=== PATIENT | female | born 1980 | race Caucasian/White ===

== ENCOUNTER 2025-06-18 10:32 | Outpatient (CLI) | payer OTHER, SELFPAY | END 2025-06-18 10:33 | disposition home or self-care (01) | LOC: AMB 06-22 05:32 | PROVIDERS: Visit Provider Emergency Medicine Emergency Medical Services | DX: S99.912A Unspecified injury of left ankle, initial encounter (principal); W00.0XXA Fall on same level due to ice and snow, initial encounter; Y93.29 Activity, other involving ice and snow; Y92.038 Other place in apartment as the place of occurrence of the external cause | CPT/HCPCS: A0425; A0433 ==

== ENCOUNTER 2025-06-18 11:01 | Day surgery (SDC) | payer OTHER, SELFPAY ==
[2025-06-18] VITALS (62 sets, daily range): BP systolic 133–191; BP diastolic 78–112; PULSE 83–120; RESP 8–38; TEMP 36.2–37.2; O2SAT 92–100
--- NOTE | 2025-06-18 11:06 | CRLHL7_ITS ---
For Patients: As a result of the Century Cures Act, medical imaging exams and procedure reports are released immediately into your electronic medical record. You may view this report before your referring provider. If you have questions, please contact your health care provider. Indication: Fall Technique: Two views of the left ankle Comparison: None Findings/Impression: Obliquely oriented fracture of the distal left fibula with lateral displacement of the distal fracture segment by approximately 1 bone width and posterior displacement by approximately 2 bone widths. Medial malleolar fracture which is displaced laterally relative to the tibia by greater than 2 bone widths. Questionable slight impaction type fracture of the tibial plafond as seen on lateral view. Tibiotalar ankle dislocation with the talus dislocated laterally by 1 bone width. No suspicious osseous lesions. Mild soft tissue edema about the ankle. Impression: Left ankle fracture dislocation as detailed above. Dictated by James Castro MD @ 06/18/2025 11:30:12 AM (Electronically Signed)
[2025-06-18] MEDS: ONDANSETRON 2 MG/ML inj 4 MG IVP (11:10)
--- NOTE | 2025-06-18 11:20 | CRLHL7_ITS ---
For Patients: As a result of the Century Cures Act, medical imaging exams and procedure reports are released immediately into your electronic medical record. You may view this report before your referring provider. If you have questions, please contact your health care provider. Indication: Postreduction Technique: Left ankle, 3 views. Comparison: Same day prior left ankle radiographs. Findings/Impression: Interval splint placement, which partially obscures fine osseous and soft tissue detail. Interval reduction of previously seen complex ankle fracture dislocation with persistent mild lateral shift of the talar dome relative to the tibial plafond and widening of the medial clear space. Decreased displacement of acute medial malleolar fracture. Significantly improved alignment of acute, obliquely oriented distal fibular fracture, now mildly posteriorly displaced. Cortical irregularity of the lateral tibial plafond suspicious for additional acute fracture. Surrounding soft tissue swelling. Dictated by Vianca Valdez MD @ 06/18/2025 11:43:27 AM (Electronically Signed)
--- OUTSIDE RECORDS SUMMARY | 2025-06-18 11:20 | XMS_ITS | Clinical Summary ---
Author Organization [employer] [facility] Address [address] [place] [id number] Care Team Providers Care Tape Calender Name Role Phone Abdi Reina MD Unavailable [phone] Rosio Urias MD Primary Care Prov ider Allergies Active Allergy Reactions Criticality Noted Date Comments Blood-Group Specific Substance Other - Describe In Comment Field 10/30/2015 Patient has a nonspecific antibody. Blood product orders may be delayed. Draw one red top and 2 purple top tubes for all Type and Screen/Red Blood Cell product orders. Medications nicotine 21 mg/24 hr (NICODERM; HABITROL) 21 mg/24 hr patchIndications: Tobacco use,Nicotine use disorder Apply 1 Patch on dry, clean, hairless skin once daily. 14 Patch 3 4 Active nicotine 14 mg/24 hr (NICODERM; HABITROL) 14 mg/24 hr patchIndications: Tobacco use,Nicotine use disorder Apply 1 Patch on dry, clean, hairless skin once daily. 14 Patch 3 4 Active nicotine 7 mg/24 hr (NICODERM; HABITROL) 7 mg/24 hr patchIndications: Tobacco use,Nicotine use disorder Apply 1 Patch on dry, clean, hairless skin once daily. 14 Patch 3 4 Active nicotine 4 mg lozengeIndication s:Tobacco use,Nicotine use disorder Place 1 Lozenge (4 mg) in mouth, between cheek & gum every hour while awake as needed for Nicotine Craving. Max 20 lozenges per day 576 Each 5 4 Active amLODIPine 5 mg tabletIndications :Primary hypertension Take 1 Tablet (5 mg) by mouth once daily. 90 Tablet 3 5 Active buPROPion 150 mg Extended-Release tabletIndications :Tobacco use,Recurrent major depressive disorder, in full remission,General ized anxiety disorder Take 1 Tablet (150 mg) by mouth once daily in the morning. 90 Tablet 3 5 Active sertraline 100 mg tabletIndications :Recurrent major depressive disorder, in full remission,General ized anxiety disorder Take 1 Tablet (100 mg) by mouth once daily. 90 Tablet 3 5 Active Hospital, Clinic, or Other Facility Administered Medication Ordered Dose Route Frequency Start Date End Date Status levonorgestrel intrauterine device 1 Device (MIRENA)Indications:Encounter for IUD insertion 1 Device IU Q 5 YEARS 09/28/2017 Active Active Problems Problem Noted Date Diagnosed Date Primary hypertension 09/28/2024 Hyperglycemia 04/09/2020 Palpitations 01/29/2020 Overview (09/28/2024): 24 Holter in 2019 which was overall normal Tobacco use 05/24/2016 Overview (01/17/2017): No desire to quit this . 01/17/2017 Recurrent major depressive disorder 12/31/2010 Generalized anxiety disorder 12/31/2010 Resolved Problems Problem Noted Date Diagnosed Date Resolved Date Alcohol dependence 09/24/2018 5 Irregularly irregular heart rhythm 09/24/2018 09/28/2024 Elevated blood-pressure read ing without diagnosis of hypertension 09/24/2018 09/28/2024 Normal labor 07/22/2017 06/15/2024 Elderly multigravida, curren tly in first trimester 01/17/2017 06/15/2024 Incisional infection 11/07/2015 016 Yeast dermatitis 11/07/2015 09/28/2024 Status post repeat low trans verse section 10/24/2015 06/15/2024 Intrauterine 10/24/201501/17 Pap smear for cervical cancer screening 05/16/2015 01/17/2017 Overview (05/16/2015): Normal pap 10/24/12 Previous section 04/18/2015 Cervical cancer screening 08/29/2014 Overview (06/15/2024): 2012 nilm Plan: pap every 3 years Epic Encounters Date Type Department Care Team Description 03/29/2025 11:00 AM CDT Ancillary Procedure [facility] [address] [place] [address] 03/29/2025 Travel from Last 3 Months Immunizations Immunization Administration Dates Next Due Hepatitis B (Adult) 05/24/2013,02/22/2013,2012 Influenza, IIV4 04/24/2018,04/18/2017 TD, UNSPECIFIED 07/18/2001 Td (Age >=7 Years) 07/18/2001 Td, Preservative Free (age > = 7 Years) 07/01/2011 Tdap 05/16/2017, 6,07/04/2014,2012 Family History Medical History Relation Name Comments Good Health Father Psychiatric illness Mother Depressi on Suicide Attempts Mother Diabetes Neg. 1 Hypertension Neg. 2 Cancer-colon Neg. 3 Heart Disease Neg. 5 Cancer-breast Paternal Aunt Depression Sister 2 Shilpa Relation Name Status Comments Brother ann-marie Alive Father Alive Maternal Grandfather Maternal Grandmother Mother suicide Neg. 1 Neg. 2 Neg. 3 Neg. 4 Neg. 5 Paternal Aunt Paternal Grandfather Paternal Grandmother Sister 1 Mellissa Alive Sister 2 Shilpa Alive Social History Tobacco Use Types Packs/Day Years Used Date Smoking Tobacco: Every Day Cigarettes Smokeless Tobacco: Never Tobacco Cessation:Ready to Q uit: Yes; Counseling Given: Yes Comments:half pack/day Alcohol Use Standard Drinks/Week Comments Not Currently 6 (1 standard drink = 0.6 oz pur e alcohol) 6 can of beer a week PHQ-2 Answer Date Recorded PHQ-2 TOTAL SCORE 2 12/14/2024 Social Connections Answer Date Recorded Do you often feel lonely or isolated from those around you? 0 06/15/2024 Financial Resource Strain Answer Date R ecorded Difficulty of Paying Living Expenses 3 06/15/2024 Difficulty of Paying Living Expenses Not on file 06/15/2024 Food Insecurity Answer Date Recorded Do you worry your food will run out before you are able to buy more? 1 06/15/2024 Transportation Needs Answer Date Record ed Does lack of transportation keep you from medica l appointments? 1 06/15/2024 Does lack of transportation keep you from work, meetings or getting things that you need? 1 06/15/2024 Housing Stability Answer Date Recorded What is your housing situation today? 1 06/15/2024 Utilities Answer Date Recorded Do you have trouble paying f or utilities (for example, heat, electricity, water, phone)? 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 Rosa yu , Dr. Collins ad Delivery Location:[facility] 2017 Term 39w 0d 2.83 kg (6 lb 3.9 oz) F C-Sec tion Spinal N Livin g 9 9 Kait Brumfield MD Complications:None Delivery Location:[facility] Last Filed Vital Signs Vital Sign Reading Time Taken Comments Blood Pressure 132/78 12/14/2024 9:11 AM CDT Pulse 84 12/14/2024 8:44 AM CDT Temperature 36.6 C (97.8 F) 09/24/2018 1:30 PM CDT Respiratory Rate 18 09/28/2018 7:25 AM CDT Oxygen Saturation 98% 12/14/2024 8:44 AM CDT Inhaled Oxygen Concentration - - Weight 85.9 kg (189 lb 6.4 oz) 09/28/2024 8:25 A M CDT Height 165.5 cm (5' 5.16) 06/15/2024 9:58 AM CS T Body Mass Index 31.37 06/15/2024 9:58 AM ONSITE CASE MANAGER Plan of Treatment Health Maintenance Due Date Last Done Comments Hepatitis C screening for ag e 18-79 1998 Pneumococcal series for age 6-49 (1 of 2 - PCV) 09/17/1999 HPV series for age 9-45 (1 - 3-dose SCDM series) 09/17/2007 COVID-19 vaccine series (2 - season) 2025 12/02/2020 Influenza Vaccine (#1) 2025 04/24/2018, 2016 Pap test for age 21-65 04/09/2025 (Verified in Care Everywhere or Patient Record), 01/17/2017, 07/01/2010 [facility] BMI (ht and wt on same day) for age 18+ 06/15/2025 06/15/2024, 09/28/2018, 07/03/2018, Additional history exists Depression screening for age 12+ 12/14/2025 12/14/2024, 08/30/2024, 06/15/2024, Additional history exists Tetanus booster 05/16/2027 05/16/2017, 11/2015, 07/04/2014, Additional history exists RSV vaccine for adults or (1 - 1-dose 75+ series) 09/17/2055 Hepatitis B series for 19+ Completed 05/24, 02/22/2013, 12/05/2012 HIV for age 15-65 Completed 01/17/2017, 05/16/2015 Procedures Procedure Name Priority Date/Time Associated Diagnosis Comments XR MAMMO KRYSTYNA BILAT SCREEN Routine 03/29/2025 11:11 AM CDT Visit for screening mammogram C ENGINEER THIN PREP PAP SCREEN IMAGED Routine 01/17/2017 7:38 PM CDT Elderly multigravida, currently in first trimester (HC) ANTI HIV 1/2 Routine 01/17/2017 7:36 PM CDT Elderly multigravida, currently in first trimester (HC) from Last 3 Months or Most Recently Relevant to Health Maintenance Results * XR MAMMO KRYSTYNA BILAT SCREEN (03/29/2025 11:11 AM CDT) Anatomical Region Laterality Modality BREASTS, Breast Left, Breast Right Bilateral Mammography Impressions 04/01/2025 2:06 PM CDT There is no radiographic evidence for malignancy. Recommend annual mammograms. MAMMOGRAM ASSESSMENT: ACR 1 Negative PATIENTS: You will also receive a letter with your examination results in an easy to read format. If you have questions about your results, please contact your referring provider. Narrative 04/01/2025 2:06 PM CDT For Patients: As a result of the Century Cures Act, medical imaging exams and procedure reports are released immediately into your electronic medical record. You may view this report before your referring provider. If you have questions, please contact your health care provider. XR MAMMO KRYSTYNA BILAT SCREEN [[id number]] CLINICAL HISTORY: This is an asymptomatic 44 y.o. patient. INDICATION FOR EXAM: Mammogram Screening. TECHNIQUE: CC and MLO views were obtained. This study was evaluated with the assistance of Computer-Aided Detection. Breast Tomosynthesis was used in interpretation. COMPARISON FILM: Yes 09/03/22 [facility] 06/15/21 [facility] FINDINGS: There are scattered areas of fibroglandular density. There are no dominant masses, suspicious micro calcifications or areas of architectural distortion. Rosio Urias MD MAMMO Fi nal Result * C ENGINEER THIN PREP PAP SCREEN IMAGED (01/17/2017 7:38 PM CDT) Case Report Gynecologic Cytology Report Case: [id number] Authorizing Provider: Leah Cintron Collected: 01/17/20171937 MD Mireille Ordering Location: [facility] Received: 01/17/20171937 [facility] First Screen: Soheila Cordova Specimen: C ENGINEER ThinPrep Vial Screening, Cervical 01/27/2017 7:55 AM CDT [facility] INTERPRETATION/ RESULT NEGATIVE FOR INTRAEPITHELIAL LESION OR MALIGNANCY (NIL) (none) 01/27/2017 7:55 AM CDT [facility] at 0755 CDT ORGANISM(S) Shift in delia suggestive of bacterial vaginosis 01/27/2017 7:55 AM CDT [facility] SPECIMEN ADEQUACY Satisfactory for evaluation Endocervical component present 01/27/2017 7:55 AM CDT [facility] HPV REQUEST HPV if ASCUS 01/27/2017 7:55 AM CDT [facility] Date of LMP 10/22/2016 01/27/2017 7:55 AM CDT [facility] Last Pap Date 200901/27/2017 7:55 AM CDT [facility] Last Pap Result NIL 7 7:55 AM CDT [facility] Abnormal Pap or [place] Bx in last 5 years No 01/27/2017 7:55 AM CDT [facility] Menstrual Status Regular Periods 01/27/2017 7:55 AM CDT [facility] [place] Bx Done Today No 01/27/2017 7:55 AM CDT [facility] Additional Information None given 01/27/2017 7:55 AM CDT [facility] Automated Review Successful 01/27/2017 7:55 AM CDT [facility] Comment:Specimen processed s uccessfully by automated burial vault deliverer and installer device, ThinPrep Imaging System, [employer] Note The pap test is a screening technique, not a diagnostic procedure. It is used primarily to screen for squamous cancers and precursor lesions. Published studies have shown that it is subject to both false negative and false positive results. The pap test should not be used as the sole means to diagnose or exclude pre-malignant and malignant lesions. Interpreted at [facility] (Central Lab, [facility], [facility], [facility], [facility], [facility], [facility]) 01/27/2017 7:55 AM CDT [facility] Other (Cervical) 01/17/2017 7:38 PM CDT 01/17/2017 7:38 PM CDT us Leah Cintron MD PATHOLOGY/CYTOLOGY Final Result [facility] [address] [place] [address], [place] * ANTI HIV 1/2 (01/17/2017 7:36 PM CDT) HIV-1/HIV-2 ANTIBODY Non-Reacti ve Non-Reacti ve 01/19/2017 3:36 PM CDT [facility] Blood BLOOD SPECIMEN / Unknown Venipuncture / Unknown 01/17/2017 7:36 PM CDT 01/17/2017 7:36 PM CDT Narrative [facility] - 01/19/2017 3:36 PM CDT HIV-1 p24 and HIV-1/HIV-2 Ab not detected us Leah Cintron MD SEND OUTS Fi nal Result Performing Organization Address City/[facility]/ZIP Co de Phone Number [facility] [address] [place] [address], from Last 3 Months or Most Recently Relevant to Health Maintenance Insurance [facility] [employer] [employer] Advance Directives * Full Code (Latest Code Status on File) Date Activated Date Inactivated Comments 07/22/2017 3:33 AM 07/24/2017 10:02 PM Question Answer Comments Code Status Discussion: Not Discussed * Full Code Date Activated Date Inactivated Comments 07/21/2017 9:11 PM 07/22/2017 2:49 AM * Full Code Date Activated Date Inactivated Comments 10/24/2015 12:19 PM 10/27/2015 3:29 PM * Full Code Date Activated Date Inactivated Comments 10/24/2015 5:35 AM 10/24/2015 12:19 PM * Full Code Date Activated Date Inactivated Comments 10/21/2015 10:39 AM 10/21/2015 10:47 AM Care Teams Tape Calender Relationship Specialty Start Date End Date Rosio Urias MD [address] [place] [address] PCP - General Family Practice 03/29/25 Abdi Reina MD Family Practice 04/16/15
--- NOTE | 2025-06-18 11:38 | ED.LOWEXIN ---
HPI - Extremity Injury (Lower) General Time Seen by Provider: 11:10 Date Seen: 06/18/25 Chief Complaint: Extremity Pain/Injury, Lower Stated Complaint: Fall Time Seen by Provider: 06/18/25 11:35 Source: patient, EMS and RN notes reviewed Mode of arrival: EMS Limitations: no limitations History of Present Illness HPI Narrative: This 44-year-old female was brought in by EMS for obvious open ankle dislocation. Nursing staff asked me to assist immediately. She had received 100 mcg of fentanyl and 25 mg of IV ketamine without relief. She slipped and fell in the parking lot this morning. She did not hit her head, no loss of consciousness. Nothing else is injured. She had a black coffee this morning but otherwise has not eaten since last night. She denies any allergies, has not had any complications to anesthesia. No chronic medical issues. She has had a before. Dr. George is here to assist me with anesthesia. Related Data Home Medications ?Medication ?Instructions ?Recorded ?Confirmed amlodipine 5 mg tablet 5 mg PO DAILY 06/18/25 06/18/25 bupropion HCl 150 mg 24 hr tablet, 150 mg PO DAILY 06/18/25 06/18/25 extended release sertraline 100 mg tablet 100 mg PO DAILY 06/18/25 06/18/25 Allergies Allergy/AdvReac Type Severity Reaction Status Date / Time No Known Drug Allergies Allergy Verified 06/18/25 11:38 Review of Systems Status of ROS: Reports: 6 or more systems reviewed and unremarkable except as noted in History and below Exam Const: Vital Signs, click to edit/add: Vital Signs - 24 hr 06/18/25 11:10 06/18/25 11:11 06/18/25 11:12 Temperature 98.1 F Pulse Rate 108 H 108 H Pulse Rate [Pulse Oximeter] 97 Respiratory Rate 24 17 19 Blood Pressure 182/111 H Blood Pressure [Le ft Upper Arm] 171/97 H Pulse Oximetry 97 100 99 Oxygen Delivery Me thod Room Air Nasal Cannula Nasal Cannula Oxygen Flow Rate 4 4 06/18/25 11:14 06/18/25 11:15 06/18/25 11:15 Temperature Pulse Rate 112 H Pulse Rate [Pulse Oximeter] Respiratory Rate 23 Blood Pressure 171/97 H Blood Pressure [Le ft Upper Arm] Pulse Oximetry 100 100 Oxygen Delivery Me thod Nasal Cannula Nasal Cannula Nasal Cannula Oxygen Flow Rate 4 4 4 06/18/25 11:16 06/18/25 11:22 06/18/25 11:25 Temperature Pulse Rate 107 H 99 103 H Pulse Rate [Pulse Oximeter] Respiratory Rate 21 11 L 9 L Blood Pressure 185/103 H 191/112 H 181/110 H Blood Pressure [Le ft Upper Arm] Pulse Oximetry 100 99 100 Oxygen Delivery Me thod Nasal Cannula Nasal Cannula Nasal Cannula Oxygen Flow Rate 4 4 4 06/18/25 11:30 06/18/25 11:31 06/18/25 11:36 Temperature Pulse Rate 93 89 99 Pulse Rate [Pulse Oximeter] Respiratory Rate 10 L Blood Pressure 163/105 H 158/111 H Blood Pressure [Le ft Upper Arm] Pulse Oximetry 100 99 100 Oxygen Delivery Me thod Nasal Cannula Nasal Cannula Nasal Cannula Oxygen Flow Rate 4 2 2 06/18/25 11:45 06/18/25 12:00 06/18/25 12:01 Temperature Pulse Rate 90 83 83 Pulse Rate [Pulse Oximeter] Respiratory Rate 24 24 14 Blood Pressure 155/96 H Blood Pressure [Le ft Upper Arm] Pulse Oximetry 99 99 97 Oxygen Delivery Me thod Nasal Cannula Nasal Cannula Room Air Oxygen Flow Rate 2 2 06/18/25 12:02 06/18/25 12:15 06/18/25 12:30 Temperature Pulse Rate 87 84 86 Pulse Rate [Pulse Oximeter] Respiratory Rate 38 H 17 Blood Pressure Blood Pressure [Le ft Upper Arm] Pulse Oximetry 97 98 98 Oxygen Delivery Me thod Oxygen Flow Rate 06/18/25 12:31 06/18/25 12:45 06/18/25 13:00 Temperature Pulse Rate 83 90 89 Pulse Rate [Pulse Oximeter] Respiratory Rate 20 13 19 Blood Pressure 150/95 H Blood Pressure [Le ft Upper Arm] Pulse Oximetry 99 98 98 Oxygen Delivery Me thod Oxygen Flow Rate 06/18/25 13:01 06/18/25 13:01 06/18/25 13:15 Temperature Pulse Rate 95 95 93 Pulse Rate [Pulse Oximeter] Respiratory Rate 23 23 11 L Blood Pressure 164/101 H 164/101 H Blood Pressure [Le ft Upper Arm] Pulse Oximetry 98 98 98 Oxygen Delivery Me thod Oxygen Flow Rate 06/18/25 13:30 06/18/25 13:32 06/18/25 13:45 Temperature Pulse Rate 87 90 93 Pulse Rate [Pulse Oximeter] Respiratory Rate 19 12 15 Blood Pressure 165/98 H Blood Pressure [Le ft Upper Arm] Pulse Oximetry 98 98 96 Oxygen Delivery Me thod Oxygen Flow Rate 06/18/25 14:00 06/18/25 14:02 06/18/25 14:15 Temperature Pulse Rate 93 91 86 Pulse Rate [Pulse Oximeter] Respiratory Rate 15 12 17 Blood Pressure 144/94 H Blood Pressure [Le ft Upper Arm] Pulse Oximetry 98 97 98 Oxygen Delivery Me thod Oxygen Flow Rate 06/18/25 14:30 06/18/25 14:32 06/18/25 14:45 Temperature Pulse Rate 95 92 95 Pulse Rate [Pulse Oximeter] Respiratory Rate 16 8 L 18 Blood Pressure 151/92 H Blood Pressure [Le ft Upper Arm] Pulse Oximetry 98 97 96 Oxygen Delivery Me thod Oxygen Flow Rate 06/18/25 15:00 06/18/25 15:01 06/18/25 15:15 Temperature Pulse Rate 95 94 101 H Pulse Rate [Pulse Oximeter] Respiratory Rate 14 15 13 Blood Pressure 153/79 H Blood Pressure [Le ft Upper Arm] Pulse Oximetry 95 96 94 Oxygen Delivery Me thod Oxygen Flow Rate 06/18/25 15:30 06/18/25 15:31 06/18/25 15:32 Temperature Pulse Rate 94 97 95 Pulse Rate [Pulse Oximeter] Respiratory Rate 14 20 Blood Pressure 139/78 Blood Pressure [Le ft Upper Arm] Pulse Oximetry 95 96 95 Oxygen Delivery Me thod Oxygen Flow Rate 06/18/25 15:45 06/18/25 16:00 06/18/25 16:01 Temperature Pulse Rate 93 95 92 Pulse Rate [Pulse Oximeter] Respiratory Rate 19 16 Blood Pressure 146/86 H Blood Pressure [Le ft Upper Arm] Pulse Oximetry 94 95 95 Oxygen Delivery Me thod Oxygen Flow Rate 06/18/25 16:15 06/18/25 16:30 06/18/25 16:31 Temperature Pulse Rate 98 102 H 101 H Pulse Rate [Pulse Oximeter] Respiratory Rate 11 L 12 16 Blood Pressure 137/79 Blood Pressure [Le ft Upper Arm] Pulse Oximetry 92 95 95 Oxygen Delivery Me thod Oxygen Flow Rate 06/18/25 16:32 06/18/25 16:45 06/18/25 17:00 Temperature Pulse Rate 102 H 99 95 Pulse Rate [Pulse Oximeter] Respiratory Rate 18 28 H 9 L Blood Pressure Blood Pressure [Le ft Upper Arm] Pulse Oximetry 95 96 95 Oxygen Delivery Me thod Oxygen Flow Rate 06/18/25 17:01 06/18/25 17:02 06/18/25 17:15 Temperature Pulse Rate 99 104 H 102 H Pulse Rate [Pulse Oximeter] Respiratory Rate 10 L 18 Blood Pressure 144/83 H Blood Pressure [Le ft Upper Arm] Pulse Oximetry 96 95 96 Oxygen Delivery Me thod Oxygen Flow Rate Patient is seen right away on arrival into the ER. She is alert, interactive, breathing independently, no airway concerns. GCS 15/15. Sclera clear, symmetrical facial function, speech normal. No oral pharyngeal or facial trauma noted. Oropharynx with a good open oral airway, dentition intact. Neck without any masses, jugular venous distension. Lungs are clear, no wheeze or crackles come no tachypnea. CV regular rate and rhythm, no murmur. Abdomen is soft, nontender. Pelvis intact. She has a medial open skin wound along the ankle can see some old blood, no active extravasation. Cannot definitely feel pulses, her foot does feel numb and tingly to her but she still has some sensation. There is obvious deformity with tenting of the skin along the open wound medially. Documenting provider has reviewed patient's vital signs: yes Course Course ED Course: X-ray is called immediately, they do get two view films, obvious bimalleolar fracture with ankle dislocation. Patient was consented on conscious sedation. Please see Dr. George's note for anesthesia. She did get propofol. I did ankle reduction, we then splinted with a posterior splint and U tong for stability. Prior to splinting we did irrigate the open ankle medial skin wound with sterile saline, did get some extrusion of the hematoma. Betadine and 4x4s were placed over the wound and the splint applied on top. Patient had good dorsalis pedis pulse and normal sensation of her toes after reduction. Three-view post reduction imaging obtained and do see bimalleolar fracture and reduction of the ankle. There is still some angulation of the distal fibular fracture. Reevaluation(s) Time of Reevaluation #1: 12:15 Reevaluation #1: Patient's last tetanus was in 2017. Will update this given the open fracture, have ordered a Tdap. Time of Reevaluation #2: 12:49 Reevaluation #2: Anesthesia is over to talk to the patient, it sounds like this surgery will be done here but have to hear confirmation from orthopedics. Her pain is controlled at this point. Still has sensation in toes now, no further numbness or tingling since reduction happened. Will start some maintenance IV fluids. Time of Reevaluation #3: 14:49 Reevaluation #3: Patient requiring more pain medication, have written for p.r.n. dilaudid with a range from 0.2 mg to 0.5 mg q.1 hour p.r.n.. She is on pulse oximetry. Consultations Consultation #1: Dr. Vides from Orthopedics is here. On planning with anesthesia and due to patient's oral intake coffee with cream this morning, surgery is planned for 4:00 p.m. from what the bathhouse attendant is telling me. Time: 13:29 Vital Signs Vital signs: Initial Vital Signs Respiratory Effort Normal, Spontaneous, Non-Labored 06/18/25 11:06 Respiratory Depth Normal 06/18/25 11:06 Vital Signs Temperature 98.1 F 06/18/25 11:10 Pulse Rate 97 06/18/25 11:10 Respiratory Rate 24 06/18/25 11:10 Blood Pressure 171/97 H 06/18/25 11:10 Pulse Oximetry 97 06/18/25 11:10 Oxygen Delivery Method Room Air 06/18/25 11:10 Temperature 98.1 F 06/18/25 11:10 Pulse Rate 102 H 06/18/25 17:15 Respiratory Rate 18 06/18/25 17:02 Blood Pressure 144/83 H 06/18/25 17:01 Pulse Oximetry 96 06/18/25 17:15 Oxygen Delivery Method Room Air 06/18/25 12:01 Oxygen Flow Rate 2 06/18/25 12:00 Medications Administered Medications: Generic Name Dose Route Start Last Admin Trade Name Freq PRN Reason Stop Dose Admin Hydromorphone HCl 0.2 - 0.5 mg 06/18/25 14:48 06/18/25 17:07 Hydromorphone 0.5 Mg/0.5 Ml Inj IVP 0.5 mg Q1H PRN Administration Pain Lactated Ringer's 1,000 mls @ 75 mls/hr 06/18/25 12:55 06/18/25 13:05 Lactated Ringers 1000 Ml IV 75 mls/hr .[id number] JANEEN Administration Discontinued Medications Generic Name Dose Route Start Last Admin Trade Name Tomeka PRN Reason Stop Dose Admin Diphtheria/Tetanus/Acell Pertussis 0.5 ml 06/18/25 12:14 06/18/25 12:26 Tetanus/Diphth/Pertussis 0.5 Ml Syringe IM 06/18/25 12:15 0.5 ml .ONCE ONE Administration Hydromorphone HCl 0.5 mg 06/18/25 11:06 06/18/25 11:54 Hydromorphone 0.5 Mg/0.5 Ml Inj IVP 06/18/25 11:07 0.5 mg ONCE ONE Administration Cefazolin Sodium 2 gm/ Sodium 100 mls @ 200 mls/hr 06/18/25 11:37 06/18/25 12:20 Chloride IVPB 06/18/25 11:38 Infused ONCE ONE Infusion Sodium Chloride 1,000 mls @ 1,000 mls/hr 06/18/25 11:48 06/18/25 12:30 0.9 % Sodium Chloride 1000 Ml IV 06/18/25 12:47 Infused .Q1H JANEEN Infusion Ondansetron HCl 4 mg 06/18/25 11:06 06/18/25 11:10 Ondansetron 2 Mg/Ml Inj IVP 06/18/25 11:07 4 mg ONCE ONE Administration Propofol 200 mg 06/18/25 11:37 06/18/25 11:59 Propofol 10 Mg/Ml Inj IVP 06/18/25 11:38 100 mg ONCE ONE Administration MDM - Extremity Injury (Lower) Imaging Data XR ankle 2view: Attestation: I have reviewed the pertinent imaging results. My impression: Images reviewed on portable during the process, do see bimalleolar fracture with ankle dislocation. Radiologist's impression: Patient: NADYA BRADLEY Facility:?[facility] Patient ID:?[id number] Site Patient ID:?[id number]. Site :?[id number] Study:?XRay-Extremity Left Ankle-06/18/2025 11:23:36 AM Ordering Physician:Ольга Muhammad Final Report: Indication: Fall Technique: Two views of the left ankle Comparison: None Findings/Impression: Obliquely oriented fracture of the distal left fibula with lateral displacement of the distal fracture segment by approximately 1 bone width and posterior displacement by approximately 2 bone widths. Medial malleolar fracture which is displaced laterally relative to the tibia by greater than 2 bone widths. Questionable slight impaction type fracture of the tibial plafond as seen on lateral view. Tibiotalar ankle dislocation with the talus dislocated laterally by 1 bone width. No suspicious osseous lesions. Mild soft tissue edema about the ankle. Impression: Left ankle fracture dislocation as detailed above. Dictated by James Castro MD @ 06/18/2025 11:30:12 AM (Electronic Signature) XR ankle 3view: Attestation: I have reviewed the pertinent imaging results. My impression: See above for my description. Radiologist's impression: Patient: NADYA BRADLEY Facility:?[facility] Patient ID:?[id number] Site Patient ID:?[id number]. Site :?[id number] Study:?XRay-Extremity Left Ankle-06/18/2025 11:39:35 AM Ordering Physician:?Jose Muhammad Final Report: Indication: Postreduction Technique: Left ankle, 3 views. Comparison: Same day prior left ankle radiographs. Findings/Impression: Interval splint placement, which partially obscures fine osseous and soft tissue detail. Interval reduction of previously seen complex ankle fracture dislocation with persistent mild lateral shift of the talar dome relative to the tibial plafond and widening of the medial clear space. Decreased displacement of acute medial malleolar fracture. Significantly improved alignment of acute, obliquely oriented distal fibular fracture, now mildly posteriorly displaced. Cortical irregularity of the lateral tibial plafond suspicious for additional acute fracture. Surrounding soft tissue swelling. Dictated by Vianca Valdez MD @ 06/18/2025 11:43:27 AM (Electronic Signature) Discharge Plan Discharge Clinical Impression: Open bimalleolar fracture of left ankle Qualifiers: Encounter type: initial encounter Patient Disposition: XFER to OR
[2025-06-18] MEDS: CEFAZOLIN 2 GM in 0.9 % SODIUM CHLORIDE Mini-bag 100 ML IVPB (11:46)
--- NOTE | 2025-06-18 11:52 | ED_ITS ---
ED Chart Note Chart Note Details Date: 06/18/25 Details: I was asked to supply anesthesia, for her this ED nice lady who suffered a left ankle fracture dislocation that appears to be open. As there is bleeding around the medial side of the malleolus. Any skin is tenting over this area, and she needs reduction. She has to talk on no history of complications of anesthesia had previous C- sections, no history of any cardiopulmonary problems, her medications include amlodipine, bupropion and Zoloft. She has no allergies to any medications, no problems with upper or lower plates or teeth that are loose. Neck no problems with rheumatoid arthritis, she has had no plating, no history of asthma wheezing. On examination, she is mildly hypertensive which is indicative of her pain state. Good saturations, no fevers, Pupils equal round reactive to light there is no scleral icterus redness TMs are normal oropharynx normal neck is supple full range of motion, mouth opening normal no trismus, greater than 3 finger widths, chest is good air entry bilaterally no wheezing crackles noted heart sounds are normal she has 2 IVs in suture. I discussed with her that we will do anesthesia, she will not be deep, we should not need to use a breathing tube but that may be needed she last ate last night. The propofol is plan, Procedure done, 100 mg of propofol use, IV by myself push, there are no complications, she was lucid during the whole time, please see note about procedure. Assessment: Anesthesia for procedure. Completed, no complications.
[2025-06-18] MEDS: PROPOFOL 10 MG/ML INJ 200 MG IVP (11:59)
[2025-06-18] MEDS: TETANUS/DIPHTH/PERTUSSIS 0.5 ML SYRINGE IM (12:26)
[2025-06-18] MEDS: LACTATED RINGERS 1000 ML 1,000 ML 75 ML IV ×2 (13:05→18:40)
--- NOTE | 2025-06-18 14:55 | PM.ORCN ---
History of Present Illness HPI Date Seen: 06/18/25 Chief complaint: Left ankle injury Narrative: Ernestina is a 44-year-old female slipped on ice earlier today and injured her ankle. She had immediate onset of ankle pain and obvious deformity. Was subsequent brought into the emergency department by EMS for further treatment. Upon arrival, she was noted to have an open ankle fracture dislocation. Closed reduction was performed by anesthesia staff , wound was irrigated with normal saline, and leg was placed into a short-leg splint. She was given IV Ancef and updated tetanus shot. She denies any injuries. She had coffee with milk shortly before 10:00 a.m. this morning but has had nothing else to eat today. Currently, her pain is adequately controlled. Meds Home Medications and Allergies Home Medications ?Medication ?Instructions ?Recorded ?Confirmed ?Type amlodipine 5 mg tablet 5 mg PO DAILY 06/18/25 06/18/25 History bupropion HCl 150 mg 24 hr tablet, 150 mg PO DAILY 06/18/25 06/18/25 History extended release sertraline 100 mg tablet 100 mg PO DAILY 06/18/25 06/18/25 History Allergies Allergy/AdvReac Type Severity Reaction Status Date / Time No Known Drug Allergies Allergy Verified 06/18/25 11:38 Ortho Exam Narrative Exam Narrative: General: Patient alert oriented no apparent distress. Musculoskeletal: Left foot and ankle were examined in the splint. Per report from the emergency physician, there was a 1-2 cm wound over the medial malleolus. Patient was able to flex and extend her toes. Sensation was intact to the distal dorsal and plantar aspects of the foot. Toes were warm and well perfused with good capillary refill. Const Vital Signs, click to edit/add: Vital Signs - 24 hr 06/18/25 11:10 06/18/25 11:11 06/18/25 11:12 Temperature 98.1 F Pulse Rate 108 H 108 H Pulse Rate [Pulse Oximeter] 97 Respiratory Rate 24 17 19 Blood Pressure 182/111 H Blood Pressure [Left Upper Arm] 171/97 H Pulse Oximetry 97 100 99 Oxygen Delivery Method Room Air Nasal Cannula Nasal Cannula Oxygen Flow Rate 4 4 06/18/25 11:14 06/18/25 11:15 06/18/25 11:15 Temperature Pulse Rate 112 H Pulse Rate [Pulse Oximeter] Respiratory Rate 23 Blood Pressure 171/97 H Blood Pressure [Left Upper Arm] Pulse Oximetry 100 100 Oxygen Delivery Method Nasal Cannula Nasal Cannula Nasal Cannula Oxygen Flow Rate 4 4 4 06/18/25 11:16 06/18/25 11:22 06/18/25 11:25 Temperature Pulse Rate 107 H 99 103 H Pulse Rate [Pulse Oximeter] Respiratory Rate 21 11 L 9 L Blood Pressure 185/103 H 191/112 H 181/110 H Blood Pressure [Left Upper Arm] Pulse Oximetry 100 99 100 Oxygen Delivery Method Nasal Cannula Nasal Cannula Nasal Cannula Oxygen Flow Rate 4 4 4 06/18/25 11:30 06/18/25 11:31 06/18/25 11:36 Temperature Pulse Rate 93 89 99 Pulse Rate [Pulse Oximeter] Respiratory Rate 10 L Blood Pressure 163/105 H 158/111 H Blood Pressure [Left Upper Arm] Pulse Oximetry 100 99 100 Oxygen Delivery Method Nasal Cannula Nasal Cannula Nasal Cannula Oxygen Flow Rate 4 2 2 06/18/25 11:45 06/18/25 12:00 06/18/25 12:01 Temperature Pulse Rate 90 83 83 Pulse Rate [Pulse Oximeter] Respiratory Rate 24 24 14 Blood Pressure 155/96 H Blood Pressure [Left Upper Arm] Pulse Oximetry 99 99 97 Oxygen Delivery Method Nasal Cannula Nasal Cannula Room Air Oxygen Flow Rate 2 2 06/18/25 12:02 06/18/25 12:15 06/18/25 12:30 Temperature Pulse Rate 87 84 86 Pulse Rate [Pulse Oximeter] Respiratory Rate 38 H 17 Blood Pressure Blood Pressure [Left Upper Arm] Pulse Oximetry 97 98 98 Oxygen Delivery Method Oxygen Flow Rate 06/18/25 12:31 06/18/25 12:45 06/18/25 13:00 Temperature Pulse Rate 83 90 89 Pulse Rate [Pulse Oximeter] Respiratory Rate 20 13 19 Blood Pressure 150/95 H Blood Pressure [Left Upper Arm] Pulse Oximetry 99 98 98 Oxygen Delivery Method Oxygen Flow Rate 06/18/25 13:01 06/18/25 13:01 06/18/25 13:15 Temperature Pulse Rate 95 95 93 Pulse Rate [Pulse Oximeter] Respiratory Rate 23 23 11 L Blood Pressure 164/101 H 164/101 H Blood Pressure [Left Upper Arm] Pulse Oximetry 98 98 98 Oxygen Delivery Method Oxygen Flow Rate 06/18/25 13:30 06/18/25 13:32 06/18/25 13:45 Temperature Pulse Rate 87 90 93 Pulse Rate [Pulse Oximeter] Respiratory Rate 19 12 15 Blood Pressure 165/98 H Blood Pressure [Left Upper Arm] Pulse Oximetry 98 98 96 Oxygen Delivery Method Oxygen Flow Rate Results Diagnostic results Additional Comments: Pre reduction x-rays of the left ankle performed in [facility] on 06/18/2025 were reviewed. These demonstrated displaced ankle fracture dislocation. Post reduction x-rays revealed successful reduction of the tibiotalar joint with lateral subluxation. Mild displacement of a long oblique Boyce B distal fibula fracture and displaced mildly comminuted medial malleolus fracture. Probable syndesmosis disruption. Assessment and Plan Assessment and plan (1) Open bimalleolar fracture of left ankle: Problem comment: Type 2 open bimalleolar ankle fracture dislocation Status: Acute Plan Patient has a type 2 open, unstable, left ankle fracture dislocation with satisfactory reduction. She has been given 1 dose of IV cefazolin as well as tetanus prophylaxis. Wound has been irrigated out in the emergency department. Recommendation at this time is for urgent surgical intervention within the next 24 hours for left ankle irrigation and debridement, open reduction internal fixation, and syndesmosis fixation. Risks of surgery to include but limited to infection, neurovascular injury, malunion, nonunion, hardware complications, need for further surgery, posttraumatic arthritis, ankle stiffness, heart attack, stroke, DVT were discussed with patient today. Details of planned procedure and expected recovery time were also discussed. After discussion, informed consent was obtained. Surgery is tentatively planned for later this afternoon or this evening. Patient has remained NPO until after surgery.
--- NOTE | 2025-06-18 15:48 | PM.ORPRC ---
Procedure Note Date of procedure: 06/18/25 Procedure: PREOPERATIVE DIAGNOSES: 1. Left bimalleolar ankle fracture, type 1 open, displaced POSTOPERATIVE DIAGNOSES: 1. Left bimalleolar ankle fracture, type 1 open, displaced NAME OF OPERATION: 1. Left bimalleolar ankle fracture open reduction internal fixation 2. Left ankle irrigation and debridement SURGEON: Joel Vides MD PET NUTRITION SPECIALIST: Jaqueline Martinez P.A.-C.; An recycling assistant was critical for this case to aid in patient positioning, leg manipulation, tissue retraction, wound closure, and splinting. ANESTHESIA: General. EBL: 50 mL IMPLANTS: Arthrex 2.7 mm interfragmentary screw, a distal fibular locking plate with 2.7 distal locking and 3.5mm proximal nonlocking screws for lateral malleolus fixation; two cannulated 4.0 mm partially threaded screws for medial malleolar fixation. TOURNIQUET: 79 minutes at 250 mmHg INDICATIONS: The patient is a 44-year-old female who sustained a left ankle injury earlier today which resulted in open fracture dislocation. Upon arrival to the emergency department, closed reduction was performed and wound was irrigated. Patient was then placed into a short-leg splint. Given the unstable nature of this injury and the open wound associated with fracture, recommendation was made for urgent surgical intervention consisting of left ankle irrigation and debridement, open reduction internal fixation, and possible syndesmosis fixation in order to reduce risk of infection and allow for bones to heal in an anatomic position. Prior to surgery, the risks and benefits of the procedure were discussed with the patient, all questions were answered, and informed consent was obtained. FINDINGS: 1. 1 cm open wound anterior medial ankle which communicated with the medial malleolus fracture. 2. Displaced medial malleolus fracture 3. Displaced, oblique, Boyce B distal fibula fracture 4. Traumatic arthrotomy anterior ankle joint. 5. Intact syndesmosis PROCEDURE: Patient was seen preoperatively and operative site was marked. The patient was then brought to the operating room and placed supine on the operating table. Induction of anesthesia was undertaken. The operative extremity was prepped and draped in the usual sterile fashion. 2 g IV Ancef was administered preoperatively for prophylaxis. A surgical time-out was performed confirming patient identity, surgical site, and surgical procedure. The operative extremity was exsanguinated, and the tourniquet inflated to 250 mmHg. A longitudinal incision was made along the posterior border of the distal fibula. Incision was carried through the skin and subcutaneous tissues, while protecting any crossing neurologic structures. The fracture was encountered, and cleared of interposed periosteum and fracture hematoma. Fracture site was then thoroughly irrigated with normal saline. The joint was inspected and no loose bodies were identified in the joint. The fracture was then reduced and temporarily held with a reduction clamp. A 2.7 mm interfragmentary lag screw was drilled perpendicular across the fracture. Following compression with the screw, a distal fibular locking plate was placed in neutralization on the lateral aspect of the distal fibula. Distal and proximal holes were filled with locking and nonlocking screws, respectively. Fluoroscopic images confirmed anatomic reduction of the distal fibula fracture with good placement of the plate and screws. Attention was then directed to the medial aspect of the ankle. The medial wound was irrigated with normal saline. A longitudinal incision was then made overlying the medial malleolar fracture. Blunt dissection was utilized to dissect through the subcutaneous tissues to allow us to protect the crossing neurovascular structures. The fracture was identified and cleared of interposed periosteum and fracture hematoma. There was also noted to be a traumatic arthrotomy of the anterior medial joint capsule. The joint and deep subcutaneous tissues were irrigated with copious amounts of normal saline. The joint was then inspected through the traumatic arthrotomy and no loose bodies were identified. The fracture was reduced and held with a pointed reduction clamp. Two guide pins for the 4-0 cannulated screws were then drilled in a retrograde fashion across the fracture. Fluoroscopic imaging confirmed anatomic reduction of the fracture and good placement of the pins. The pins were then overdrilled and partially-threaded 4.0 mm cannulated screws were secured into position over the pins. Guide pins were removed . Fluoroscopic imaging confirmed anatomic reduction with good compression and good placement of the screws. After confirming appropriate reduction and positioning of the plate and screws using fluoroscopic imaging, an external rotation stress was placed on the ankle to test for syndesmosis stability. Stress imaging revealed a symmetric mortise with no widening of the syndesmosis. At this stage, the wounds were again thoroughly irrigated with normal saline. Laterally , deep fascia was closed over the plate using 0 Vicryl [id number] interrupted sutures. The joint capsule was also repaired with 0 Vicryl [id number] interrupted sutures. The tourniquet was then released. Total tourniquet time was 79 minutes. Hemostasis was achieved electrocautery. Skin incisions were then closed with 2-0 Vicryl inverted interrupted subcutaneous stitches followed by running 3-0 nylon stitch. The 1 cm open wound was closed with simple interrupted 3-0 nylon sutures. Sterile dressings were applied and a well-padded short-leg splint was applied. The patient was awoken from anesthesia and transferred to the PACU in stable condition. PLAN: 1. Ice and elevation of operative extremity for pain and swelling. 2. Tylenol and oxycodone as needed for pain. 3. Keep splint clean and dry 4. Toe-touch weight-bearing operative extremity for total of 6 weeks 5. Follow up in [facility] in 10-14 days for wound check and splint removal and transition to cam walker. Will initiate formal physical therapy in 2 weeks following 1st postop visit.
[2025-06-18] MEDS: BUPIVACAINE 0.5 %/EPI 1:200K 30 ML INJECTION (19:32)
--- NOTE | 2025-06-18 20:35 | P.ANES_ITS ---
Anesthesia Charges Start Date/Time Anesthesia Start Date: 06/18/25 Anesthesia Start Time: 17:31 Stop Date/Time Anesthesia Stop Date: 06/18/25 Anesthesia Stop Time: 20:31 Summary Emergency: CREATIVE SERVICES DESIGNER Coding CPT Codes CPT Codes: ANESTH LOWER LEG BONE SURG - 33426 ([id number]) P2 - PATIENT W/MILD SYST DISEASE, QZ - CREATIVE SERVICES DESIGNER SVC W/O DIPPER AND DRIER BY Additional Codes: Summary - Emergency: CREATIVE SERVICES DESIGNER ([id number])
--- NOTE | 2025-06-18 20:35 | W.ANESCHARGE ---
Anesthesia Charges Start Date/Time Anesthesia Start Date: 06/18/25 Anesthesia Start Time: 17:31 Stop Date/Time Anesthesia Stop Date: 06/18/25 Anesthesia Stop Time: 20:31 Summary Emergency: OPHTHALMIC TECHNICIAN APPRENTICE Coding CPT Codes CPT Codes: ANESTH LOWER LEG BONE SURG - 81395 ([id number]) P2 - PATIENT W/MILD SYST DISEASE, QZ - OPHTHALMIC TECHNICIAN APPRENTICE SVC W/O CORK INSULATION INSTALLER BY Additional Codes: Summary - Emergency: OPHTHALMIC TECHNICIAN APPRENTICE ([id number])
[2025-06-18] MEDS: OxyCODONE/APAP 5-325 TABLET PO (21:54)
--- NOTE | 2025-06-18 23:57 | PC.NURSE ---
Discharge Summary: Patient to 261 from PACU. Patient pleasant and cooperative. Splint and felicita wrap to left lower extremity C/D/I. Elevated on pillows. Tolerating regular diet with no nausea. Rating pain 5/10 and PRN Percocet given x1. Up to bathroom with SBA and crutches. NWB to left lower extremity. Patient discharged home at 2320 with all personal belongings accompanied by spouse. Discharge instructions including diagnosis, medications and follow up plan discussed with patient and voiced understanding.
== END 2025-06-18 23:20 | disposition home or self-care (01) ==
LOC: ED 13:30 → SS 13:38 → MEDSURG 21:27
PROVIDERS: Emergency Provider Family Medicine; Visit Provider Orthopaedic Surgery
PROC: (CPT 27814; principal; 2025-06-18 16:00)
DX: S82.842B Displaced bimalleolar fracture of left lower leg, initial encounter for open fracture type I or II (principal); W00.0XXA Fall on same level due to ice and snow, initial encounter; Y92.481 Parking lot as the place of occurrence of the external cause; Z23 Encounter for immunization
CPT/HCPCS: 27814; 11010; 01480; 73600; 73610; 76000; 90715; 99140; 99284; 99285; A9270; C1713; J0131; J0330; J0690; J1100; J1171; J2250; J2371; J2405; J2704; J3010; J3475; J3490; J7030; J7120